=== PATIENT | male | born 1990 | race Caucasian/White ===

== ENCOUNTER → 2024-04-04 | Outpatient (CLI) | payer BC ==
[~2024-04-04] MED LIST: IOHEXOL 350 MG/ML 100ML INFUS..BTL IV ONE
== END | disposition home or self-care (01) ==
LOC: RAH 08:26
PROVIDERS: ATTEND Internal Medicine Cardiovascular Disease
DX: R07.9 Chest pain, unspecified (principal); M47.815 Spondylosis without myelopathy or radiculopathy, thoracolumbar region
CPT/HCPCS: 75574; Q9967

== ENCOUNTER 2024-09-06 19:33 | Emergency (ER) | payer BC ==
[~2024-09-06] VITALS: Ht 165.1 cm; Wt 54.4 kg
--- NOTE | 2024-09-06 20:47 | HMCIMG ---
CHEST 1VW CLINICAL HISTORY: uri COMPARISON: None TECHNIQUE: Single view of the chest was obtained. FINDINGS: Lungs are clear. The cardiac size and mediastinum are unremarkable. There is change prior Dixon keya fusion of the thoracic or lumbar spine. IMPRESSION: No acute cardiopulmonary process identified.
[2024-09-06 20:54] LABS: RAPID GROUP A STREP negative (NEGATIVE)
[2024-09-06 20:57] LABS: SARS-CoV-2, RNA, NAAT NEGATIVE SARS CoV-2 (NEGATIVE)
[2024-09-06 21:04] LABS: INFLUENZA TYPE A Negative For Type A (NEGATIVE); INFLUENZA TYPE B Negative For Type B (NEGATIVE)
[2024-09-06 21:06] LABS: BASOPHILS # (AUTO) 0.08 K/uL (0.00-0.20); BASOPHILS % (AUTO) 0.4 % (0.0-5.0); EOSINOPHILS # (AUTO) 0.13 K/uL (0.00-0.70); EOSINOPHILS % (AUTO) 0.6 % (0.0-8.0); IMMATURE GRANULOCYTE ABSOLUTE 0.12 K/uL (0-1); LYMPHOCYTES # (AUTO) 1.3 K/uL (1.0-4.8); LYMPHOCYTES % (AUTO) 6.4 % (21.0-51.0); MEAN CORPUSCULAR HEMOGLOBIN 29.8 pg (27.0-33.0); MEAN CORPUSCULAR HGB CONC 33.3 g/dL (32.0-36.0); MEAN CORPUSCULAR VOLUME 89.4 fL (79-99); MONOCYTES # (AUTO) 0.9 K/uL (0.1-1.0); MONOCYTES % (AUTO) 4.5 % (3.0-13.0); NEUTROPHILS # (AUTO) 18.3 K/uL (1.8-7.7); NEUTROPHILS % (AUTO) 87.5 % (40.0-77.0); PLATELET COUNT (AUTO) 354 K/uL (130-400); RED BLOOD CELL COUNT(AUTO) 5.37 MIL/uL (4.50-6.20); RED CELL DISTRIBUTION WIDTH 13.9 % (11.0-15.5); WHITE BLOOD COUNT (AUTO) 20.9 K/uL (4.8-10.8)
--- NOTE | 2024-09-06 21:06 | ERN ---
General Chief Complaint: Cough Stated Complaint: FEVER,CHILLS,CONGESTION, X3 WEEKS Time Seen by MD: 19:36 Source: patient History of Present Illness Initial Comments Patient is a 34-year-old male coming in to be evaluated for URI symptoms. Per patient he has had a cough for about three weeks and recently felt as if he was getting worse. He states for a while he was getting better and then today he started having increased cough with nasal congestion and URI symptoms. Allergies: Coded Allergies: Sulfa (Sulfonamide Antibiotics) (Unverified Allergy, Unknown, 09/06/24) Past Medical History Past Medical History: No Pertinent History, Other Medical History Other: SCOLIOSIS Past Surgical History: None ROS Dictation CONSTITUTIONAL: No chills, no fever, no weakness, no diaphoresis, no malaise. HEAD/FACE: No signs of trauma. EENT: No eye pain, no blurred vision, no tearing, no double vision, no ear pain, no ear discharge, no nose pain, no nasal congestion, no throat pain, no throat swelling, no mouth pain. RESPIRATORY: No cough, no orthopnea, no SOB, no stridor, no wheezing. CARDIOVASCULAR: No chest pain, no edema, no palpitations, no syncope. GASTROINTESTINAL/ABDOMINAL: No abdominal pain, no constipation, no diarrhea, no nausea, no vomiting. GENITOURINARY: No abnormal discharge, no dysuria, no frequent urination, no hematuria. No complaints of pain in the genitals. MUSCULOSKELETAL: No back pain, no gout, no joint pain, no joint swelling, no muscle pain, no muscle stiffness, no neck pain. INTEGUMENTARY: No change in color, no change in hair/nails, no dryness, no lesion, no lumps, no rash. NEUROLOGICAL/PSYCH: No anxiety, not depressed, no emotional problem, no headache, no numbness, no pre-existing deficit, no history of seizures, no tremors, no weakness. HEMATOLOGIC/LYMPHATIC: Not anemic, no history of blood clots, no apparent bleeding, no bruising, glands not swollen. All Systems Negative, Except as Noted. Physical Exam Physical Exam Dictation VITAL SIGNS: Reviewed. GENERAL APPEARANCE: Alert, oriented x3, no acute distress, obese. HEAD AND FACE: Non-traumatic. EYES: PERRL, pink conjunctivas, eyelid no trauma, anterior chamber clear. EARS: Pinnas intact and no signs of trauma or erythema. Ear canals clear and no discharge. TMs erythema. NOSE: No discharge, no bleeding. BILATERAL NASAL TURBINATE SWELLING MORE ON THE RIGHT SIDE. OROPHARYNX: Mouth normal, teeth no caries, tongue pink. Pharynx clear, erythema. Tonsils no exudates, no abscesses noted. Mucous membrane moist. NECK: Supple, non-tender, no thyromegaly, no masses, no JVD, no bruits. BREAST: Deferred. CHEST: No tenderness, no crepitus, no paradoxical movement, no retractions. LUNGS: Clear, well-ventilated, symmetric, no rales, no wheezing, no rhonchi, no stridor, good breath sounds bilaterally. HEART: Regular rate, regular rhythm, no murmur, no gallops. VASCULAR: No peripheral edema. ABDOMEN: Soft, positive bowel sounds, nondistended, no guarding, nontender, no rebound, no masses no hepatomegaly, no splenomegaly, no Lay's sign, no hernias. RECTAL: Deferred. GENITAL: Deferred. NEUROLOGICAL: Normal speech, gross motor function intact, gross sensory function intact. MUSCULOSKELETAL: Neck nontender, full range of motion, back nontender, full range of motion. EXTREMITIES: Nontender, full range of motion. SKIN: Color pink, dry, no turgor, no rash, no lacerations, no abrasions, no contusions. LYMPHATICS: Deferred. Results Laboratory and Microbiology Lab and Micro Result Laboratory Tests Test 09/06/24 20:30 09/06/24 20:52 09/06/24 22:15 Influenza Type A Antigen Negative For Type A Influenza Type B Antigen Negative For Type B SARS-CoV-2, RNA, NAAT NEGATIVE SARS CoV-2 Group A Streptococcus Rapid negative (NEGATIVE) White Blood Count 20.9 K/uL (4.8-10.8) H Red Blood Count 5.37 MIL/uL (4.50-6.20) Hemoglobin 16.0 g/dL (14.0-18.0) Hematocrit 48.0 % (42-54) Mean Corpuscular Volume 89.4 fL (79-99) Mean Corpuscular Hemoglobin 29.8 pg (27.0-33.0) Mean Corpuscular Hemoglobin Concent 33.3 g/dL (32.0-36.0) Red Cell Distribution Width 13.9 % (11.0-15.5) Platelet Count 354 K/uL (130-400) Mean Platelet Volume 8.9 fL (7.5-10.5) Immature Granulocyte % (Auto) 0.6 % (0-1) Neutrophils (%) (Auto) 87.5 % (40.0-77.0) H Lymphocytes (%) (Auto) 6.4 % (21.0-51.0) L Monocytes (%) (Auto) 4.5 % (3.0-13.0) Eosinophils (%) (Auto) 0.6 % (0.0-8.0) Basophils (%) (Auto) 0.4 % (0.0-5.0) Neutrophils # (Auto) 18.3 K/uL (1.8-7.7) H Lymphocytes # (Auto) 1.3 K/uL (1.0-4.8) Monocytes # (Auto) 0.9 K/uL (0.1-1.0) Eosinophils # (Auto) 0.13 K/uL (0.00-0.70) Basophils # (Auto) 0.08 K/uL (0.00-0.20) Absolute Immature Granulocyte (auto 0.12 K/uL (0-1) Nucleated Red Blood Cells 0.0 % (0.0-0.19) White Cell Morphology Comment See comments Sodium Level 137 mmol/L (136-145) Potassium Level 3.6 mmol/L (3.5-5.1) Chloride Level 100 mmol/L (101-111) L Carbon Dioxide Level 26 mmol/L (21-32) Blood Urea Nitrogen 17 mg/dL (7-18) Creatinine 1.1 mg/dL (0.5-1.3) Glomerular Filtration Rate Calc 89 mL/min (>90) Random Glucose 96 mg/dL (70-105) Total Calcium 9.1 mg/dL (8.5-10.1) Total Creatine Kinase 261 U/L (21-232) H Urine Color LIGHT-YELLOW (YELLOW) Urine Appearance CLEAR (CLEAR) Urine pH 5.5 (5.0-8.0) Urine Specific [place] 1.021 (1.001-1.031) Urine Protein NEGATIVE mg/dL (NEGATIVE) Urine Glucose (UA) NEGATIVE mg/dL (NEGATIVE) Urine Ketones NEGATIVE mg/dL (NEGATIVE) Urine Occult Blood NEGATIVE (NEGATIVE) Urine Nitrate NEGATIVE (NEGATIVE) Urine Bilirubin NEGATIVE mg/dL (NEGATIVE) Urine Urobilinogen 0.2 mg/dL (0.2-1.0) Urine Leukocyte Esterase NEGATIVE Rhianna/uL Urine RBC 0-1 /HPF (0-1) Urine WBC 0-1 /HPF (0-1) Urine Squamous Epithelial Cells RARE /HPF (0-2) Urine Bacteria None /HPF (None Seen) Urine Opiates Screen NEGATIVE (NEGATIVE) Urine Barbiturates Screen NEGATIVE (NEGATIVE) Urine Phencyclidine Screen NEGATIVE (NEGATIVE) Urine Amphetamines Screen NEGATIVE (NEGATIVE) Urine Benzodiazepines Screen NEGATIVE (NEGATIVE) Urine Cocaine Screen NEGATIVE (NEGATIVE) Urine Marijuana (THC) Screen NEGATIVE (NEGATIVE) Labs Reviewed?: Yes EKG/XRAY/US/CT/MRI X-RAY Comment [address] [id number] IMAGING REPORT Signed PATIENT: YASMIN GUTIERRES MR#: [id number] : 1990 SEX: M AGE: 34 LOCATION: [facility] ORDER 47 STATUS: [facility] REPORT#: [id number] SERVICE 45 REASON: uri ORDERING PHYSICIAN: MERCEDES HOOK MD PROCEDURE: CXR1VW - CHEST 1VW CHEST 1VW CLINICAL HISTORY: uri COMPARISON: None TECHNIQUE: Single view of the chest was obtained. FINDINGS: Lungs are clear. The cardiac size and mediastinum are unremarkable. There is change prior Dixon keya fusion of the thoracic or lumbar spine. IMPRESSION: No acute cardiopulmonary process identified. DICTATED BY: RADHA CRUZ DO DATE: 09/06/242043 ELECTRONICALLY SIGNED BY: RADHA CRUZ DO DATE: 09/06/242046 [facility] MDM: Differential diagnosis: SINUSITIS, LEUKOCYTOSIS, URI, PATIENT IS A 34-YEAR-OLD MALE COMING IN TO BE EVALUATED FOR URI SYMPTOMS. PATIENT STATES THAT HE HAS BEEN HAVING A COUGH WITH SOME POSTNASAL DRIP. LABORATORY WORKUP NEGATIVE FOR ACUTE FINDINGS. EXCEPT FOR LEUKOCYTOSIS WHICH PATIENT RECEIVED ROCEPHIN IM AND WILL BE GOING HOME WITH ORAL ANTIBIOTICS. ON PHYSICAL EXAM BILATERAL NASAL TURBINATE SWELLING MORE ON THE RIGHT, POSTNASAL DRIPS OROPHARYNGEAL ERYTHEMA, AND TYMPANIC MEMBRANE ERYTHEMA WITH CONGESTION ALL SUGGESTIVE OF SINUSITIS. ED Course Orders Procedure Category Date Status Time Cbc With Differential LAB 09/06/24 Complete 19:46 Basic Metabolic Panel LAB 09/06/24 Complete 19:46 Covid Rna Naat LAB 09/06/24 Complete 19:46 Influenza Type A & B, LAB 09/06/24 Complete Rapid 19:46 Rapid (Group A Strep) LAB 09/06/24 Complete 19:46 Chest 1vw RAD 09/06/24 Resulted 19:46 Acetaminophen 500mg PHA 09/06/24 Complete Tab (Tylenol 500mg T 20:00 Drug Screen Urine LAB 09/06/24 Complete 21:14 Creatine Kinase, Total LAB 09/06/24 Complete 21:14 Urinalysis LAB 09/06/24 Complete W/Microscopic 21:14 Ceftriaxone 1g Vial PHA 09/06/24 Transmitted (Rocephine 1g Inj) 23:00 Current Medications Medications (Trade) Dose Ordered Sig/Shan Route PRN Reason Start Time Stop Time Status Last Admin Dose Admin Acetaminophen (TYLenol 500MG TAB) 1,000 mg ONCE ONCE PO 09/06/24 20:00 09/06/24 20:01 DC 09/06/24 22:05 Vital Signs Date Time Temp Pulse Resp B/P (MAP) Pulse Ox O2 Delivery O2 Flow Rate FiO2 09/06/24 22:09 98.4 86 16 136/77 95 Room Air* 0 21 09/06/24 22:05 99.3 09/06/24 20:28 99.3 97 20 135/69 95 Room Air DX & DISP Disposition: Discharge Departure Impression: Primary Impression: Sinusitis Condition: Stable Scripts Fluticasone Propionate (Flonase Nasal [place]) 50 Mcg/Actuation [place] 2 SPRAY NS DAILY, #16 GM 0 Refills Prov: MERCEDES HOOK MD 09/06/24 Amoxicillin/Potassium Clav (Amox Tr-K Clv 875-125 mg Tab) 875 Mg-125 Mg Tablet 1 TAB PO BID for 10 Days, #20 TAB 0 Refills Prov: MERCEDES HOOK MD 09/06/24 Additional Instructions: FOLLOW-UP WITH PRIMARY CARE PROVIDER IN 1 TO 2 DAYS. TAKE MEDICATIONS DIRECTED HERE IN THE EMERGENCY ROOM. OKAY TO CONTINUE HOME MEDICATIONS UNLESS OTHERWISE DISCUSSED DURING YOUR VISIT IN THE EMERGENCY ROOM TODAY. RETURN TO YOUR NEAREST EMERGENCY ROOM IF SYMPTOMS WORSEN OR IF THERE IS NO IMPROVEMENT. CALL 911 IF YOU NEED IMMEDIATE ASSISTANCE. TAKE TYLENOL [id number] NEEDED AND IF NO CONTRAINDICATIONS ARE PRESENT. INCREASE ORAL HYDRATION. A WOU ND CULTURE OR URINE CULTURE WAS ORDERED HERE IN THE EMERGENCY ROOM DEPARTMENT PLEASE FOLLOW-UP WITH PRIMARY CARE PROVIDER AND ADVISE THEM TO GET REPEAT PORTS FROM OUR FACILITY. IF YOU HAD ANY [employer] WRAP/SPLINTS THAT WERE APPLIED HERE, PLEASE DO NOT REMOVE THEM UNTIL YOU SEE YOUR PRIMARY CARE OR SPECIALTY. REFERRALS: Referrals: SELF,REFERRAL (PCP) BRAYAN THAPA MD Time of Disposition: 22:46 MERCEDES HOOK MD Sep 06, 2024 21:06
[2024-09-06 21:19] LABS: CREATININE 1.1 mg/dL (0.5-1.3); POTASSIUM 3.6 mmol/L (3.5-5.1)
[2024-09-06 22:05] VITALS: TEMP 99.3
[2024-09-06] MEDS: acetaMINOPHEN 500 MG TABLET PO ONE (22:05)
[2024-09-06 22:09] VITALS: BP 136/77; PULSE 86; RESP 16; TEMP 98.4; O2SAT 95
[2024-09-06 22:25] LABS: APPEARANCE,URINE CLEAR (CLEAR); BILIRUBIN,URINE NEGATIVE (NEGATIVE); COLOR,URINE LIGHT-YELLOW (YELLOW); GLUCOSE, URINE (UA) NEGATIVE (NEGATIVE); KETONES,URINE NEGATIVE (NEGATIVE); LEUKOCYTE ESTERASE ,URINE NEGATIVE Leu/uL (NEGATIVE); NITRATE,URINE NEGATIVE (NEGATIVE); OCCULT BLOOD,URINE NEGATIVE (NEGATIVE); PH,URINE 5.5 (5.0-8.0); PROTEIN,URINE NEGATIVE (NEGATIVE); UROBILINOGEN,URINE 0.2 mg/dL (0.2-1.0)
[2024-09-06 22:26] LABS: MUCUS,URINE RARE LPF (None Seen); RBC,URINE 0-1 /HPF (0-1); SQUAMOUS EPITHELIAL CELL,UR RARE /HPF (0-2); WBC,URINE 0-1 /HPF (0-1)
[2024-09-06 22:33] LABS: AMPHET/METH SCREEN,URINE NEGATIVE (NEGATIVE); BARBITURATE SCREEN, URINE NEGATIVE (NEGATIVE); BENZODIAZEPINES SCREEN,URINE NEGATIVE (NEGATIVE); CANNABINOID SCREEN,URINE NEGATIVE (NEGATIVE); COCAINE SCREEN,URINE NEGATIVE (NEGATIVE); OPIATE SCREEN,URINE NEGATIVE (NEGATIVE); PHENCYCLIDINE SCREEN,URINE NEGATIVE (NEGATIVE)
[2024-09-06] MEDS ORDERED: FLUT16H NS (22:46)
[2024-09-06] MEDS ORDERED: AMOX1TAB16 PO (22:46)
[2024-09-06] MEDS ORDERED: cefTRIAXone 1G VIAL IM ONE (23:00)
== END 2024-09-06 22:57 | disposition home or self-care (01) ==
LOC: EDH 19:33
DX: J32.9 Chronic sinusitis, unspecified (principal); M41.9 Scoliosis, unspecified; Z20.822 Contact with and (suspected) exposure to COVID-19; Z79.899 Other long term (current) drug therapy; Z88.2 Allergy status to sulfonamides
CPT/HCPCS: 99284; 71045; 87635; 82550; 80048; 80305; 85025; 87880; 87804 ×2; 36415; 96372; 81001; J0696